=== PATIENT | male | born 1985 | race Caucasian/White ===

== ENCOUNTER 2020-03-09 15:24 | Emergency (ER) | payer MEDICAID ==
[~2020-03-09] VITALS: Ht 180.3 cm; Wt 93.0 kg
--- NOTE | 2020-03-09 15:45 | NUR ---
PT IS IN ROOM #1A. DR CHENG EVALUATED THE PT.
[2020-03-09] MEDS ORDERED: KETOROLAC TROMETHAMINE 30 MG INJ ONE (15:55)
[2020-03-09] MEDS ORDERED: KETOROLAC TROMETHAMINE 30 MG INJ IM ONE (16:00)
--- NOTE | 2020-03-09 16:06 | NUR ---
PT WAS D/C'd TO HOME. D/C INSTRUCTIONS GIVEN TO THE PT BY DR CHENG.
[2020-03-09 16:07] VITALS: BP 142/78
== END 2020-03-09 16:07 | disposition home or self-care (01) ==
LOC: ER 15:28
DX: G89.29 Other chronic pain (principal); M46.96 Unspecified inflammatory spondylopathy, lumbar region
CPT/HCPCS: 96372; 99283; J1885; A4663

== ENCOUNTER 2020-03-21 17:24 | Emergency (ER) | payer MEDICAID ==
[~2020-03-21] VITALS: Ht 180.3 cm; Wt 90.7 kg
[2020-03-21] MEDS ORDERED: DEXAMETHASONE SOD PHOSPHATE 4 MG INJ IM ONE (17:45)
[2020-03-21] MEDS ORDERED: KETOROLAC TROMETHAMINE 15 MG INJ IM ONE (17:45)
[2020-03-21] MEDS ORDERED: TRAMADOL HCL 50 MG TABLET PO ONE (17:45)
[2020-03-21 17:53] LABS: BASOPHILS # (AUTO) 0.1 K/uL (0.0-8.0); EOSINOPHILS # (AUTO) 0.1 K/uL (0.0-0.7); EOSINOPHILS % (AUTO) 1.5 % (0.0-7.0); HEMATOCRIT 47.1 % (36.7-47.1); HEMOGLOBIN 16.2 g/dL (12.5-16.3); LYMPHOCYTES # (AUTO) 3.4 K/uL (20.0-40.0); LYMPHOCYTES % (AUTO) 58.7 % (20.5-51.5); MEAN CORPUSCULAR HEMOGLOBIN 29.2 uug (23.8-33.4); MEAN CORPUSCULAR HGB CONC 34 g/dL (32.5-36.3); MEAN CORPUSCULAR VOLUME 85.2 fL (73.0-96.2); MONOCYTES # (AUTO) 0.8 K/uL (2.0-10.0); MONOCYTES % (AUTO) 14.3 % (0.0-11.0); NEUTROPHILS # (AUTO) 1.4 K/uL (1.8-8.9); NEUTROPHILS % (AUTO) 24.5 % (38.5-71.5); PLATELET COUNT (AUTO) 228 K/uL (152-348); RED BLOOD CELL COUNT(AUTO) 5.54 MIL/uL (4.06-5.63); WHITE BLOOD COUNT (AUTO) 5.7 K/uL (3.6-10.2)
[2020-03-21] MEDS ORDERED: DEXAMETHASONE SOD PHOSPHATE 4 MG INJ ONE (17:54)
[2020-03-21] MEDS ORDERED: KETOROLAC TROMETHAMINE 60 MG INJ IM ONE (17:55)
[2020-03-21] MEDS ORDERED: TRAMADOL HCL 50 MG TABLET ONE (17:55)
[2020-03-21 18:03] LABS: CARBON DIOXIDE 25 mmol/L (21-32); CHLORIDE 102 mmol/L (98-107); CREATININE 1.2 mg/dL (0.6-1.3); GLUCOSE 118 mg/dL (74-106); POTASSIUM 3.7 mmol/L (3.5-5.1); UREA NITROGEN, BLOOD 16 mg/dL (7-18)
[2020-03-21 18:09] LABS: ALANINE AMINOTRANSFERASE 131 U/L (16-63); ALKALINE PHOSPHATASE 121 U/L (50-136); ASPARTATE AMINOTRANSFERASE 65 U/L (15-37); BILIRUBIN,DIRECT < 0.1 mg/dL (0.0-0.2); BILIRUBIN,TOTAL 0.4 mg/dL (0.2-1.0); LIPASE 156 U/L (73-393); TOTAL PROTEIN, SERUM 7.9 g/dL (6.4-8.2)
[2020-03-21 18:25] LABS: *BILIRUBIN,URIN NEGATIVE (NEGATIVE); *BLOOD, URINE 1+ (NEGATIVE); *CLARITY,URINE CLEAR (CLEAR); *COLOR,URINE YELLOW (YELLOW); *KETONES,URINE NEGATIVE (NEGATIVE); *UROBILINOGEN,URINE 0.2 E.U./dl (NORMAL); LEUKOCYTE ESTERASE ,URINE NEGATIVE (NEGATIVE); NITRITE, URINE NEGATIVE (NEGATIVE); PH,URINE 5.5 (5.0-8.0); UGLUCOSE NEGATIVE (NEGATIVE)
[2020-03-21 18:32] VITALS: BP 138/76
[2020-03-21 18:54] LABS: BACTERIA,URINE FEW /HPF (NONE SEEN); RBC,URINE 0-3 /HPF (0-3); WBC,URINE 0-3 /HPF (0-3)
== END 2020-03-21 18:27 | disposition home or self-care (01) ==
LOC: ER 17:27
DX: S39.012A Strain of muscle, fascia and tendon of lower back, initial encounter (principal); X58.XXXA Exposure to other specified factors, initial encounter; Y92.89 Other specified places as the place of occurrence of the external cause; M51.26 Other intervertebral disc displacement, lumbar region
CPT/HCPCS: 36415; 74176; 80048; 80076; 81001; 83690; 85025; 96372 ×2; 99284; J1100; J1885; A4663

== ENCOUNTER 2020-04-04 14:05 | Emergency (ER) | payer MEDICAID ==
[~2020-04-04] VITALS: Ht 180.3 cm; Wt 89.8 kg
[2020-04-04 14:40] LABS: BASOPHILS # (AUTO) 0.1 K/uL (0.0-8.0); BASOPHILS % (AUTO) 0.9 % (0.0-2.0); EOSINOPHILS # (AUTO) 0.1 K/uL (0.0-0.7); EOSINOPHILS % (AUTO) 1.1 % (0.0-7.0); HEMATOCRIT 41.6 % (36.7-47.1); HEMOGLOBIN 13.8 g/dL (12.5-16.3); LYMPHOCYTES # (AUTO) 2.5 K/uL (20.0-40.0); LYMPHOCYTES % (AUTO) 30.4 % (20.5-51.5); MEAN CORPUSCULAR HEMOGLOBIN 28.2 uug (23.8-33.4); MEAN CORPUSCULAR HGB CONC 33 g/dL (32.5-36.3); MEAN CORPUSCULAR VOLUME 85.2 fL (73.0-96.2); MONOCYTES # (AUTO) 0.8 K/uL (2.0-10.0); NEUTROPHILS # (AUTO) 4.7 K/uL (1.8-8.9); NEUTROPHILS % (AUTO) 57.6 % (38.5-71.5); PLATELET COUNT (AUTO) 247 K/uL (152-348); RED BLOOD CELL COUNT(AUTO) 4.88 MIL/uL (4.06-5.63); WHITE BLOOD COUNT (AUTO) 8.2 K/uL (3.6-10.2)
[2020-04-04 14:44] LABS: *BILIRUBIN,URIN NEGATIVE (NEGATIVE); *BLOOD, URINE NEGATIVE (NEGATIVE); *CLARITY,URINE CLEAR (CLEAR); *COLOR,URINE YELLOW (YELLOW); *KETONES,URINE NEGATIVE (NEGATIVE); LEUKOCYTE ESTERASE ,URINE NEGATIVE (NEGATIVE); NITRITE, URINE NEGATIVE (NEGATIVE); UGLUCOSE NEGATIVE (NEGATIVE)
--- NOTE | 2020-04-04 14:44 | NUR ---
Pt c/o 04/14 RUQ ABD pain, "pressure," recurring x 3-4 weeks, denies n/v. Pt denies CP, SOB, dizziness, no other complaints, no distress noted.
[2020-04-04 14:56] LABS: BILIRUBIN,DIRECT 0.1 mg/dL (0.0-0.2); BILIRUBIN,TOTAL 0.4 mg/dL (0.2-1.0); CREATININE 1.4 mg/dL (0.6-1.3); POTASSIUM 3.9 mmol/L (3.5-5.1); TOTAL PROTEIN, SERUM 6.9 g/dL (6.4-8.2)
[2020-04-04] MEDS ORDERED: LIDOCAINE VISCUS 2% 15 ML UDC MM ONE (15:15)
[2020-04-04] MEDS ORDERED: MAG HYDROX/AL HYDROX/SIMETH 30 ML LIQUID UDC PO ONE (15:15)
[2020-04-04] MEDS ORDERED: PANTOPRAZOLE SODIUM 40 MG TABLET.DR PO ONE ×2 (15:15→15:36)
[2020-04-04] MEDS ORDERED: MAG HYDROX/AL HYDROX/SIMETH 30 ML LIQUID UDC ONE (15:35)
[2020-04-04] MEDS ORDERED: LIDOCAINE VISCUS 2% 15 ML UDC ONE (15:36)
--- NOTE | 2020-04-04 15:45 | NUR ---
Pt feeling much better, pain now 09/14, MD informed.
--- NOTE | 2020-04-04 15:59 | NUR ---
Gave pt RX and d/c instructions, pt verbalized understanding.
[2020-04-04 16:00] VITALS: BP 138/84
== END 2020-04-04 16:01 | disposition home or self-care (01) ==
LOC: ER 14:07
DX: K29.70 Gastritis, unspecified, without bleeding (principal); R79.89 Other specified abnormal findings of blood chemistry
CPT/HCPCS: 36415; 71045; 83690; 85025; A4663

== ENCOUNTER 2020-08-22 06:55 | Emergency (ER) | payer MEDICAID ==
[~2020-08-22] VITALS: Ht 180.3 cm; Wt 81.6 kg
--- NOTE | 2020-08-22 07:51 | NUR ---
[email or web address], medical screening exam in progress
--- NOTE | 2020-08-22 08:27 | NUR ---
Patient discharged to home in stable condition. Written and verbal after care instructions given to patient. Patient verbalized understanding & compliance of instructions. Stressed follow up with his primary doctor or return to ER for worsening s/s.
== END 2020-08-22 08:28 | disposition home or self-care (01) ==
LOC: ER 06:58
DX: L02.01 Cutaneous abscess of face (principal)
CPT/HCPCS: A4663

== ENCOUNTER 2020-08-24 20:08 | Emergency (ER) | payer MEDICAID ==
[~2020-08-24] VITALS: Ht 172.7 cm; Wt 81.2 kg
--- NOTE | 2020-08-24 20:53 | NUR ---
Janet bearden in [facility] - 08/24/20 at 2053 by JILLIANYA LWBT
--- NOTE | 2020-08-24 20:58 | NUR ---
DRESSING PLACED TO ABSCESS, PT D/C'D HOME.
[2020-08-24 20:59] VITALS: BP 155/78
== END 2020-08-24 21:00 | disposition home or self-care (01) ==
LOC: ER 20:08
DX: Z48.817 Encounter for surgical aftercare following surgery on the skin and subcutaneous tissue (principal); L02.01 Cutaneous abscess of face
CPT/HCPCS: A4663

== ENCOUNTER 2021-01-14 20:44 | Emergency (ER) | payer MEDICAID ==
[~2021-01-14] VITALS: Ht 177.8 cm; Wt 95.3 kg
--- NOTE | 2021-01-14 21:25 | NUR ---
Dr. Renya at bedside for MSE.
[2021-01-14] MEDS ORDERED: CEPH500C2 PO (21:38)
[2021-01-14] MEDS ORDERED: CLOT12CR TP (21:38)
[2021-01-14] MEDS ORDERED: HYDR-3972 PO (21:38)
--- NOTE | 2021-01-14 21:45 | NUR ---
Patient discharged to home in stable condition. Written and verbal after care instructions given. Patient verbalizes understanding of instructions. Stressed follow up or return to ER for worsening s/s.
[2021-01-14 21:46] VITALS: BP 143/89
== END 2021-01-14 21:46 | disposition home or self-care (01) ==
LOC: ER 20:45
DX: R23.4 Changes in skin texture (principal); L08.9 Local infection of the skin and subcutaneous tissue, unspecified; B96.89 Other specified bacterial agents as the cause of diseases classified elsewhere
CPT/HCPCS: A4663

== ENCOUNTER 2021-06-14 10:23 | Emergency (ER) | payer MEDICAID ==
[~2021-06-14] VITALS: Ht 177.8 cm; Wt 93.0 kg
[~2021-06-14 10:23] MED LIST: CEPH500C2 PO; CLOT12CR TP; HYDR-3972 PO
--- NOTE | 2021-06-14 10:55 | NUR ---
at bedside for assessment
[2021-06-14] MEDS ORDERED: KETOROLAC TROMETHAMINE 30 MG INJ IM ONE (11:00)
[2021-06-14] MEDS ORDERED: IBUP-1958 PO (11:01)
[2021-06-14] MEDS ORDERED: HYDR-4209 PO (11:01)
--- NOTE | 2021-06-14 11:01 | NUR ---
Toradol injection given in left deltoid
[2021-06-14] MEDS ORDERED: KETOROLAC TROMETHAMINE 30 MG INJ ONE (11:05)
--- NOTE | 2021-06-14 11:07 | NUR ---
Patient discharged to home in stable condition. No signs of distress noted. Written and verbal after care instructions given. Patient verbalizes understanding of instructions. Stressed follow up or return to ER for worsening s/s.
[2021-06-14 11:16] VITALS: BP 117/87
== END 2021-06-14 11:16 | disposition home or self-care (01) ==
LOC: ER 10:23
DX: G89.29 Other chronic pain (principal); M54.50 Low back pain, unspecified
CPT/HCPCS: 96372; 99283; J1885; A4663

== ENCOUNTER 2021-06-18 14:24 | Emergency (ER) | payer MEDICAID ==
[~2021-06-18] VITALS: Ht 177.8 cm; Wt 93.0 kg
[~2021-06-18 14:24] MED LIST changes: +HYDR-4209 PO; +IBUP-1958 PO
[2021-06-18] MEDS: IBUPROFEN 400 MG TABLET PO ONE (14:58)
[2021-06-18] MEDS: HYDROCODONE/APAP 5-325MG TABLET PO ONE (14:59)
[2021-06-18] MEDS: ACETAMINOPHEN 325 MG TABLET PO ONE (14:59)
[2021-06-18] MEDS ORDERED: IBUPROFEN 400 MG TABLET ONE (15:03)
[2021-06-18] MEDS ORDERED: HYDROCODONE/APAP 5-325MG TABLET ONE (15:03)
[2021-06-18] MEDS ORDERED: ACETAMINOPHEN 325 MG TABLET ONE (15:03)
[2021-06-18 15:42] VITALS: BP 131/77
--- NOTE | 2021-06-18 15:42 | NUR ---
Patient discharged to home in stable condition. Written and verbal after care instructions given. Patient verbalizes understanding of instructions. Stressed follow up or return to ER for worsening s/s.PT WALKS I NSTEADY GAIT. PT NOT DRIVING
== END 2021-06-18 15:43 | disposition home or self-care (01) ==
LOC: ER 14:24
DX: M25.512 Pain in left shoulder (principal); G89.29 Other chronic pain; M54.9 Dorsalgia, unspecified; M19.90 Unspecified osteoarthritis, unspecified site
CPT/HCPCS: 73030; A4663

== ENCOUNTER 2021-09-13 08:09 | Emergency (ER) | payer MEDICAID ==
[~2021-09-13] VITALS: Ht 180.3 cm; Wt 81.6 kg
[2021-09-13] MEDS ORDERED: KETOROLAC TROMETHAMINE 30 MG INJ IM ONE (08:30)
--- NOTE | 2021-09-13 08:42 | NUR ---
PT SEEN AND EVALUATED BY DR CHENG. MEDICATED FOR PAIN PER MD ORDER. TOLERATED WELL.
[2021-09-13 08:44] VITALS: BP 135/87
[2021-09-13] MEDS ORDERED: KETOROLAC TROMETHAMINE 30 MG INJ ONE (08:46)
== END 2021-09-13 08:45 | disposition home or self-care (01) ==
LOC: ER 08:19
DX: M54.42 Lumbago with sciatica, left side (principal); G89.29 Other chronic pain; M19.90 Unspecified osteoarthritis, unspecified site
CPT/HCPCS: 96372; 99283; J1885; A4663

== ENCOUNTER 2021-10-22 09:00 | Emergency (ER) | payer MEDICAID ==
[~2021-10-22] VITALS: Ht 180.3 cm; Wt 72.6 kg
[2021-10-22] MEDS ORDERED: PIPERACILLIN SODIUM/TAZOBACTAM 3.375 G in IV DEXTROSE 5% 50 ML IV ONE (09:15)
[2021-10-22] MEDS ORDERED: IV NORMAL SALINE 1000 ML BAG IV ONE (09:15)
[2021-10-22] MEDS ORDERED: VANCOMYCIN IV 1,000 MG in IV DEXTROSE 5% 250 ML IV ONE (09:15)
[2021-10-22 09:33] LABS: HEMATOCRIT 41.7 % (36.7-47.1); MEAN CORPUSCULAR HEMOGLOBIN 29.5 uug (23.8-33.4); MEAN CORPUSCULAR VOLUME 86.6 fL (73.0-96.2); PLATELET COUNT (AUTO) 313 K/uL (152-348)
[2021-10-22] MEDS ORDERED: IOHEXOL 300MG/ML 100 ML INFUS..BTL ONE (09:35)
[2021-10-22] MEDS ORDERED: IV NORMAL SALINE 250 ML IV ONE (09:35)
[2021-10-22] MEDS ORDERED: SWABABLE VALVE TRANSFER SET EA MC ONE (09:35)
[2021-10-22 09:42] LABS: CREATININE 0.9 mg/dL (0.6-1.3); POTASSIUM 3.2 mmol/L (3.5-5.1)
[2021-10-22] MEDS ORDERED: VANCOMYCIN IV 200 ML ONE (09:42)
[2021-10-22] MEDS ORDERED: PIPERACILLIN/TAZOBACTAM/D5W 50 ML IV ONE (09:42)
[2021-10-22 09:48] LABS: BILIRUBIN,DIRECT 0.5 mg/dL (0.0-0.2); BILIRUBIN,TOTAL 1.2 mg/dL (0.2-1.0)
[2021-10-22] MEDS ORDERED: SULF1TAB48 PO (12:58)
[2021-10-22] MEDS ORDERED: CEPH500C2 PO (12:58)
[2021-10-22 13:11] VITALS: BP 121/59
== END 2021-10-22 12:30 | disposition home or self-care (01) ==
LOC: ER 09:00
DX: L03.211 Cellulitis of face (principal); L03.221 Cellulitis of neck; E87.6 Hypokalemia; R79.89 Other specified abnormal findings of blood chemistry
CPT/HCPCS: 36415; 70491; 71045; 80048; 80076; 85025; 85730; 96365; 96366; 96367; 99285; J2543; J3370; Q9967; A4663; J7030; J7050

== ENCOUNTER → 2021-12-30 | Emergency (ER) | payer SELFPAY ==
[~2021-12-30] MED LIST changes: +SULF1TAB48 PO
--- NOTE | 2021-12-30 23:29 | NUR ---
pt left without being triaged.
== END | disposition left against medical advice (07) ==
LOC: ER 20:34
DX: Z53.21 Procedure and treatment not carried out due to patient leaving prior to being seen by health care provider (principal)

== ENCOUNTER 2022-01-11 10:14 | Emergency (ER) | payer MEDICAID ==
[~2022-01-11] VITALS: Ht 180.3 cm; Wt 95.3 kg
--- NOTE | 2022-01-11 10:32 | NUR ---
[email or web address], medical screening exam in progress
[2022-01-11] MEDS ORDERED: NAPR-1164 PO (10:36)
[2022-01-11] MEDS ORDERED: KETOROLAC TROMETHAMINE 30 MG INJ ONE (10:45)
[2022-01-11] MEDS ORDERED: KETOROLAC TROMETHAMINE 30 MG INJ IM ONE (10:45)
--- NOTE | 2022-01-11 10:49 | NUR ---
Patient discharged to home in stable condition with steady gait. Written and verbal after care instructions given. Patient verbalized understanding and compliance of instructions. Stressed follow up with your primary doctor or return to ER for worsening s/s.
== END 2022-01-11 10:49 | disposition home or self-care (01) ==
LOC: ER 10:14
DX: S39.012A Strain of muscle, fascia and tendon of lower back, initial encounter (principal); X58.XXXA Exposure to other specified factors, initial encounter; Y92.032 Bedroom in apartment as the place of occurrence of the external cause; G89.4 Chronic pain syndrome
CPT/HCPCS: 96372; 99283; J1885; A4663

== ENCOUNTER 2022-05-02 14:57 | Emergency (ER) | payer MEDICAID ==
[~2022-05-02] VITALS: Ht 180.3 cm; Wt 99.8 kg
[~2022-05-02 14:57] MED LIST changes: +NAPR-1164 PO
[2022-05-02 16:31] LABS: HEMATOCRIT 44.6 % (36.7-47.1); MEAN CORPUSCULAR HEMOGLOBIN 29.8 uug (23.8-33.4); MEAN CORPUSCULAR VOLUME 88.5 fL (73.0-96.2); PLATELET COUNT (AUTO) 290 K/uL (152-348)
[2022-05-02 16:36] LABS: POTASSIUM 3.6 mmol/L (3.5-5.1)
[2022-05-02 16:44] LABS: BILIRUBIN,TOTAL 0.4 mg/dL (0.2-1.0); TOTAL PROTEIN, SERUM 7.6 g/dL (6.4-8.2)
--- NOTE | 2022-05-02 17:13 | NUR ---
PT WAS EVALUATED BY DR GUSMAN. PT WAS D/C'd TO HOME. D/C INSTRUCTIONS GIVEN TO THE PT BY DR GOFF.
[2022-05-02 17:16] VITALS: BP 134/78
== END 2022-05-02 17:56 | disposition home or self-care (01) ==
LOC: ER 14:59
DX: R59.0 Localized enlarged lymph nodes (principal); G89.4 Chronic pain syndrome; M19.90 Unspecified osteoarthritis, unspecified site
CPT/HCPCS: 36415; 85025; A4663

== ENCOUNTER 2022-05-26 20:37 | Emergency (ER) | payer MEDICAID ==
[~2022-05-26] VITALS: Ht 177.8 cm; Wt 90.7 kg
--- NOTE | 2022-05-26 21:30 | NUR ---
Dr. Chambers called per Dr. Loera's request.
[2022-05-26] MEDS ORDERED: MORPHINE SULFATE 2 MG/1 ML DISP.SYRIN ONE (21:31)
[2022-05-26] MEDS ORDERED: LIDOCAINE HCL 1% 20 ML VIAL ONE (21:47)
[2022-05-26] MEDS ORDERED: HYDROMORPHONE 1 MG/1 ML DISP.SYRIN ONE (21:48)
--- NOTE | 2022-05-26 22:00 | NUR ---
Dr. Chambers at bedside. MSE in progress.
[2022-05-26] MEDS ORDERED: MORPHINE SULFATE 4 MG/1 ML DISP.SYRIN IM ONE (22:15)
[2022-05-26] MEDS ORDERED: HYDROMORPHONE 1 MG/1 ML DISP.SYRIN IM ONE (22:15)
--- NOTE | 2022-05-26 23:06 | NUR ---
Patient discharged to home in stable condition. A/Ox4. NAD noted. All belongings with patient. Written and verbal after care instructions given. Patient verbalizes understanding of instructions. Stressed follow up or return to ER for worsening s/s.
[2022-05-26 23:09] VITALS: BP 128/82
== END 2022-05-26 23:06 | disposition home or self-care (01) ==
LOC: ER 20:39
DX: N47.2 Paraphimosis (principal); N48.89 Other specified disorders of penis; G89.4 Chronic pain syndrome; M19.90 Unspecified osteoarthritis, unspecified site
CPT/HCPCS: 99284; 54450; 96372 ×2; J3490; J1170; J2270; A4663

== ENCOUNTER → 2022-09-02 | Emergency (ER) | payer SELFPAY | END | disposition left against medical advice (07) | LOC: ER 07:12 | DX: Z53.21 Procedure and treatment not carried out due to patient leaving prior to being seen by health care provider (principal) ==

== ENCOUNTER 2022-09-03 04:32 | Emergency (ER) | END 2022-09-03 06:46 | disposition home or self-care (01) | DX: S39.012A Strain of muscle, fascia and tendon of lower back, initial encounter (principal); X50.9XXA Other and unspecified overexertion or strenuous movements or postures, initial encounter; Y93.89 Activity, other specified; Y92.89 Other specified places as the place of occurrence of the external cause; G89.4 Chronic pain syndrome | CPT/HCPCS: 99283; 80048; 85025; 36415; 96372; J1885 ==

== ENCOUNTER 2022-09-25 15:13 | Emergency (ER) | payer MEDICAID ==
[~2022-09-25] VITALS: Ht 180.3 cm; Wt 77.1 kg
[2022-09-25] MEDS ORDERED: BACITRACIN ZINC OINT 15 GM TUBE TOP ONE (15:45)
[2022-09-25] MEDS ORDERED: BACITRACIN ZINC OINT 15 GM TUBE ONE (15:52)
--- NOTE | 2022-09-25 15:54 | NUR ---
PT SEEN AND EVALUATED BY PARIKH. MEDICATION PER MD ORDER. DISCHARGE INSTRUCTIONS RENDERED R/T [facility] AND [facility]INTMENT APPLICATION.
[2022-09-25] MEDS ORDERED: BACI3.5O23 TOP (15:58)
[2022-09-25 16:01] VITALS: BP 136/90
== END 2022-09-25 16:02 | disposition home or self-care (01) ==
LOC: ER 15:17
DX: A46 Erysipelas (principal); G89.4 Chronic pain syndrome
CPT/HCPCS: A4663

== ENCOUNTER 2022-10-09 14:12 | Emergency (ER) | payer MEDICAID ==
[~2022-10-09] VITALS: Ht 180.3 cm; Wt 86.2 kg
[~2022-10-09 14:12] MED LIST changes: +BACI3.5O23 TOP
[2022-10-09] MEDS ORDERED: ONDANSETRON 4 MG/2 ML VIAL ONE (15:12)
[2022-10-09] MEDS ORDERED: HYDROCODONE/APAP 5-325MG TABLET ONE (15:12)
[2022-10-09] MEDS ORDERED: HYDROCODONE/APAP 5-325MG TABLET PO ONE (15:15)
[2022-10-09] MEDS ORDERED: IV NORMAL SALINE 1000 ML BAG IV ONE (15:15)
[2022-10-09] MEDS ORDERED: ONDANSETRON 4 MG/2 ML VIAL IV ONE (15:15)
[2022-10-09 15:18] LABS: HEMATOCRIT 44.1 % (36.7-47.1); MEAN CORPUSCULAR HEMOGLOBIN 29.1 uug (23.8-33.4); PLATELET COUNT (AUTO) 284 K/uL (152-348)
--- NOTE | 2022-10-09 15:25 | NUR ---
36 years old alert, oriented x4 c/o left posterior head pain after falling yesterday, denies LOC.
[2022-10-09] MEDS ORDERED: SWABABLE VALVE TRANSFER SET EA MC ONE (15:59)
[2022-10-09] MEDS ORDERED: IV NORMAL SALINE 250 ML IV ONE (15:59)
[2022-10-09] MEDS ORDERED: IOHEXOL 350 100 ML INFUS..BTL ONE (15:59)
--- NOTE | 2022-10-09 19:12 | NUR ---
IV removed. Catheter intact and site benign. Pressure and 4x4 gauze applied to site. No bleeding noted.
== END 2022-10-09 19:14 | disposition home or self-care (01) ==
LOC: ER 14:12
DX: S06.0X0A Concussion without loss of consciousness, initial encounter (principal); S01.01XA Laceration without foreign body of scalp, initial encounter; R40.2252 Coma scale, best verbal response, oriented, at arrival to emergency department; R40.2362 Coma scale, best motor response, obeys commands, at arrival to emergency department; R40.2142 Coma scale, eyes open, spontaneous, at arrival to emergency department; W01.190A Fall on same level from slipping, tripping and stumbling with subsequent striking against furniture, initial encounter; Y92.89 Other specified places as the place of occurrence of the external cause; M47.812 Spondylosis without myelopathy or radiculopathy, cervical region; G89.4 Chronic pain syndrome; M19.90 Unspecified osteoarthritis, unspecified site
CPT/HCPCS: 99285; 70450; 96374; 71045; 96361; 80048; 85025; 85730; 36415; 70498; 72125; J2405; Q9967; J7040; A4663

== ENCOUNTER 2023-06-02 15:15 | Emergency (ER) | payer MEDICAID ==
[~2023-06-02] VITALS: Ht 180.3 cm; Wt 86.2 kg
[2023-06-02] MEDS ORDERED: OLOP2.5D12 EACHEYE (16:58)
[2023-06-02] MEDS ORDERED: LORA-782 PO (16:58)
[2023-06-02] MEDS ORDERED: BUDE8.43 NS (16:58)
[2023-06-02 17:34] VITALS: BP 122/70; TEMP 98; O2SAT 99
== END 2023-06-02 17:35 | disposition home or self-care (01) ==
LOC: ER 15:19
DX: J30.9 Allergic rhinitis, unspecified (principal); Z79.899 Other long term (current) drug therapy; Z79.1 Long term (current) use of non-steroidal anti-inflammatories (NSAID)
CPT/HCPCS: A4663

== ENCOUNTER 2023-12-07 09:16 | Emergency (ER) | payer OTHER ==
[~2023-12-07] VITALS: Ht 180.3 cm; Wt 81.6 kg
[~2023-12-07 09:16] MED LIST changes: +BUDE8.43 NS; +LORA-782 PO; +OLOP2.5D12 EACHEYE
[2023-12-07] MEDS ORDERED: CLIN300C3 PO (09:48)
[2023-12-07] MEDS ORDERED: MUPI22OI2 TP (09:48)
[2023-12-07] MEDS ORDERED: CLINDAMYCIN HCL 300 MG CAPSULE ONE (09:54)
[2023-12-07 09:55] VITALS: O2SAT 99
[2023-12-07] MEDS: CLINDAMYCIN HCL 150 MG CAPSULE PO ONE (10:03)
== END 2023-12-07 09:59 | disposition home or self-care (01) ==
LOC: ER 09:16
DX: J34.0 Abscess, furuncle and carbuncle of nose (principal); Z79.899 Other long term (current) drug therapy; Z60.2 Problems related to living alone
CPT/HCPCS: A4606; A4663

== ENCOUNTER 2023-12-26 09:13 | Emergency (ER) | payer OTHER ==
[~2023-12-26] VITALS: Ht 180.3 cm; Wt 72.6 kg
[~2023-12-26 09:13] MED LIST changes: +CLIN300C3 PO; +MUPI22OI2 TP
[2023-12-26] MEDS ORDERED: ONDANSETRON 4 MG/2 ML VIAL ONE (09:54)
[2023-12-26] MEDS ORDERED: HYDROMORPHONE 1 MG/1 ML DISP.SYRIN ONE (09:54)
[2023-12-26] MEDS: IV NORMAL SALINE 1000 ML BAG IV ONE (10:01)
[2023-12-26] MEDS: HYDROMORPHONE 1 MG/1 ML DISP.SYRIN IV ONE (10:01)
[2023-12-26] MEDS: ONDANSETRON 4 MG/2 ML VIAL IV ONE (10:01)
[2023-12-26 10:09] LABS: BASOPHILS # (AUTO) 0.4 K/UL (0.0-0.2); BASOPHILS % (AUTO) 3.8 % (0.0-2.0); EOSINOPHILS # (AUTO) 0.2 K/uL (0.0-0.7); EOSINOPHILS % (AUTO) 1.6 % (0.0-7.0); HEMATOCRIT 43.2 % (36.7-47.1); HEMOGLOBIN 14.7 g/dL (12.5-16.3); LYMPHOCYTES # (AUTO) 0.9 K/uL (0.8-4.8); LYMPHOCYTES % (AUTO) 8.8 % (20.5-51.5); MEAN CORPUSCULAR HEMOGLOBIN 30.3 uug (23.8-33.4); MEAN CORPUSCULAR HGB CONC 34 g/dL (32.5-36.3); MEAN CORPUSCULAR VOLUME 88.9 fL (73.0-96.2); MONOCYTES # (AUTO) 0.6 K/uL (0.1-1.30); MONOCYTES % (AUTO) 5.5 % (0.0-11.0); NEUTROPHILS # (AUTO) 8.3 K/uL (1.8-8.9); NEUTROPHILS % (AUTO) 80.3 % (38.5-71.5); PLATELET COUNT (AUTO) 260 K/uL (152-348); RED BLOOD CELL COUNT(AUTO) 4.86 MIL/uL (4.06-5.63); RED CELL DISTRIBUTION WIDTH 13.7 % (12.1-16.2); WHITE BLOOD COUNT (AUTO) 10.3 K/uL (3.6-10.2)
[2023-12-26 10:34] LABS: CALCIUM 8.9 mg/dL (8.5-10.1); CREATININE 0.9 mg/dL (0.6-1.3); POTASSIUM 3.2 mmol/L (3.5-5.1)
[2023-12-26 10:40] LABS: ALBUMIN 3.9 g/dL (3.4-5.0); BILIRUBIN,DIRECT 0.4 mg/dL (0.0-0.2); BILIRUBIN,TOTAL 1.1 mg/dL (0.2-1.0); TOTAL PROTEIN, SERUM 7.2 g/dL (6.4-8.2)
[2023-12-26 10:41] LABS: DIFFERENTIAL COMMENT 1
[2023-12-26 10:42] LABS: *BLOOD, URINE NEGATIVE (NEGATIVE); *CLARITY,URINE CLEAR (CLEAR); *COLOR,URINE YELLOW (YELLOW); *KETONES,URINE TRACE (NEGATIVE); *PROTEIN,URINE 1+ (NEGATIVE); LEUKOCYTE ESTERASE ,URINE NEGATIVE (NEGATIVE); NITRITE, URINE NEGATIVE (NEGATIVE); PH,URINE 5.5 (5.0-8.0); UGLUCOSE NEGATIVE (NEGATIVE)
[2023-12-26] MEDS ORDERED: POTASSIUM BICARBONATE/CIT AC 25 MEQ TABLET.EFF ONE (11:01)
[2023-12-26] MEDS: POTASSIUM BICARBONATE/CIT AC 25 MEQ TABLET.EFF PO ONE (11:05)
[2023-12-26 11:06] LABS: *BILIRUBIN,URIN 1+ (NEGATIVE)
[2023-12-26] MEDS ORDERED: IOHEXOL 300MG/ML 100 ML INFUS..BTL ONE (11:14)
[2023-12-26] MEDS ORDERED: IV NORMAL SALINE 250 ML IV ONE (11:14)
[2023-12-26] MEDS ORDERED: SWABABLE VALVE TRANSFER SET EA MC ONE (11:14)
[2023-12-26 11:52] LABS: BACTERIA,URINE FEW /HPF (NONE SEEN); COARSE GRANULAR CASTS,URINE 0-3 /LPF; RBC,URINE 0-3 /HPF (0-3); SQUAMOUS EPITHELIAL CELL,UR FEW /HPF (NONE SEEN); URINE AMORPHOUS URATE MANY /HPF; WBC,URINE 0-3 /HPF (0-3)
[2023-12-26 15:47] VITALS: BP 130/70; TEMP 97; O2SAT 99
== END 2023-12-26 15:48 | disposition home or self-care (01) ==
LOC: ER 09:13
DX: R10.11 Right upper quadrant pain (principal); R45.851 Suicidal ideations; R74.01 Elevation of levels of liver transaminase levels; G89.29 Other chronic pain; Z79.899 Other long term (current) drug therapy; Z60.2 Problems related to living alone
CPT/HCPCS: 99285; 74177; 96374; 76705; 96375; 80076; 80048; 81001; 83690; 85025; 36415; J2405; Q9967; J1170; J7040; A4606; A4663

== ENCOUNTER 2024-02-15 09:23 | Emergency (ER) | payer OTHER ==
[~2024-02-15] VITALS: Ht 180.3 cm; Wt 81.6 kg
[2024-02-15] MEDS ORDERED: KETOROLAC TROMETHAMINE 60 MG INJ IM ONE (09:53)
[2024-02-15] MEDS ORDERED: LORAZEPAM 1 MG TABLET ONE (09:53)
[2024-02-15] MEDS: KETOROLAC TROMETHAMINE 60 MG INJ IM ONE (10:02)
[2024-02-15] MEDS: LORAZEPAM 0.5 MG TABLET PO ONE (10:02)
[2024-02-15] MEDS ORDERED: IBUP-1955 PO (11:06)
[2024-02-15] MEDS ORDERED: ALOE118C TP (11:06)
[2024-02-15 11:21] VITALS: BP 118/70; TEMP 98.5; O2SAT 96
== END 2024-02-15 11:15 | disposition home or self-care (01) ==
LOC: ER 09:23
DX: R07.89 Other chest pain (principal); Z79.899 Other long term (current) drug therapy; Z60.2 Problems related to living alone
CPT/HCPCS: 99283; 71045; 96372; J1885; A4606; A4663

== ENCOUNTER 2024-03-20 10:59 | Emergency (ER) | payer MEDICARE, OTHER ==
[~2024-03-20] VITALS: Ht 177.8 cm; Wt 81.6 kg
[~2024-03-20 10:59] MED LIST changes: +ALOE118C TP; +IBUP-1955 PO
[2024-03-20] MEDS ORDERED: NEOMY/BACITRA/POLYMYXIN B OINT UD PACKET TP ONE (11:49)
[2024-03-20] MEDS ORDERED: AMOX-430 PO (12:55)
[2024-03-20] MEDS ORDERED: IBUP-1955 PO (12:55)
[2024-03-20] MEDS ORDERED: TDAP DIPH,PERTUSS,TET VAC/PF 0.5 ML DISP.SYRIN IM ONE ×2 (13:00)
[2024-03-20 13:11] VITALS: BP 121/72; TEMP 97; O2SAT 99
== END 2024-03-20 13:11 | disposition home or self-care (01) ==
LOC: ER 10:59
DX: S21.112A Laceration without foreign body of left front wall of thorax without penetration into thoracic cavity, initial encounter (principal); Z79.1 Long term (current) use of non-steroidal anti-inflammatories (NSAID); Z79.899 Other long term (current) drug therapy; Z79.891 Long term (current) use of opiate analgesic; Z60.2 Problems related to living alone; W54.0XXA Bitten by dog, initial encounter; Y93.89 Activity, other specified; Y92.89 Other specified places as the place of occurrence of the external cause; Y99.8 Other external cause status
CPT/HCPCS: 90715; A4606; A4663

== ENCOUNTER 2024-05-07 16:53 | Emergency (ER) | payer MEDICARE ==
[~2024-05-07] VITALS: Ht 180.3 cm; Wt 81.6 kg
[~2024-05-07 16:53] MED LIST changes: +AMOX-430 PO
[2024-05-07] MEDS ORDERED: CEFTRIAXONE 1 G VIAL ONE (17:19)
[2024-05-07] MEDS ORDERED: LIDOCAINE HCL 1% 20 ML VIAL ONE (17:19)
[2024-05-07] MEDS: CEFTRIAXONE 1 G VIAL IM ONE (17:21)
[2024-05-07] MEDS ORDERED: SULF1TAB48 PO (17:53)
[2024-05-07] MEDS ORDERED: AMOX-430 PO (17:53)
--- NOTE | 2024-05-07 18:07 | NUR ---
Patient discharged to home in stable condition. Written and verbal after care instructions given. Patient verbalizes understanding of instructions. Stressed follow up or return to ER for worsening s/s. Pt encouraged to change dressing regularly and monitor for worsening infections. and to take meds as directed
[2024-05-07 18:09] VITALS: BP 126/78; O2SAT 99
== END 2024-05-07 18:21 | disposition home or self-care (01) ==
LOC: ER 16:54
DX: L03.116 Cellulitis of left lower limb (principal); Z79.1 Long term (current) use of non-steroidal anti-inflammatories (NSAID); Z79.891 Long term (current) use of opiate analgesic; Z79.899 Other long term (current) drug therapy; Z60.2 Problems related to living alone
CPT/HCPCS: 99283; 96372; J0696; J3490; A4606; A4663

== ENCOUNTER 2024-05-30 10:29 | Emergency (ER) | payer MEDICAID, MEDICARE ==
[~2024-05-30] VITALS: Ht 180.3 cm; Wt 81.6 kg
[2024-05-30] MEDS: CEFTRIAXONE 1 G VIAL IM ONE (11:32)
[2024-05-30] MEDS ORDERED: CEFTRIAXONE 1 G VIAL ONE (11:32)
[2024-05-30] MEDS ORDERED: LIDOCAINE HCL 1% 20 ML VIAL ONE (11:32)
[2024-05-30] MEDS ORDERED: SULFAMETH/TRIMETH 800/160 MG TABLET ONE (11:32)
[2024-05-30] MEDS: SULFAMETH/TRIMETH 800/160 MG TABLET PO ONE (11:33)
[2024-05-30] MEDS ORDERED: SULF1TAB48 PO (11:40)
[2024-05-30 11:49] VITALS: BP 129/84; O2SAT 98
[2024-05-30] MEDS: LIDOCAINE HCL 1% 20 ML VIAL IJ ONE (12:02)
[2024-05-31] MEDS ORDERED: OXYC-133 PO (00:02)
== END 2024-05-30 11:49 | disposition home or self-care (01) ==
LOC: ER 10:29
DX: L02.811 Cutaneous abscess of head [any part, except face] (principal); Z79.1 Long term (current) use of non-steroidal anti-inflammatories (NSAID); Z79.891 Long term (current) use of opiate analgesic; Z79.899 Other long term (current) drug therapy; Z60.2 Problems related to living alone
CPT/HCPCS: 99283; 10060; 96372; J0696; J3490; A4606; A4663

== ENCOUNTER 2024-05-30 22:13 | Emergency (ER) | payer MEDICAID, MEDICARE ==
[~2024-05-30] VITALS: Ht 180.3 cm; Wt 81.6 kg
[2024-05-30] MEDS ORDERED: CEFTRIAXONE /D5W 50ML IVPB **ER PYXIS IV ONE (22:51)
[2024-05-30] MEDS ORDERED: ASPIRIN 81 MG TAB.CHEW ONE (22:51)
[2024-05-30] MEDS ORDERED: ALPRAZOLAM 0.5 MG TABLET ONE (22:52)
[2024-05-30] MEDS ORDERED: ONDANSETRON ODT 4 MG TAB.RAPDIS ONE (22:52)
[2024-05-30] MEDS ORDERED: OXYCODONE/APAP 5-325 MG TABLET ONE (22:52)
[2024-05-30] MEDS: OXYCODONE/APAP 5-325 MG TABLET PO ONE (22:59)
[2024-05-30] MEDS: ALPRAZOLAM 0.25 MG TABLET PO ONE (22:59)
[2024-05-30] MEDS: ONDANSETRON ODT 4 MG TAB.RAPDIS SL ONE (22:59)
[2024-05-30] MEDS: ASPIRIN 81 MG TAB.CHEW PO ONE (22:59)
[2024-05-30 23:09] LABS: CALCIUM 8.4 mg/dL (8.5-10.1); CARBON DIOXIDE 27 mmol/L (21-32); CHLORIDE 99 mmol/L (98-107); GLUCOSE 151 mg/dL (74-106); POTASSIUM 3.6 mmol/L (3.5-5.1); SODIUM SERUM 136 mmol/L (136-145); UREA NITROGEN, BLOOD 7 mg/dL (7-18)
[2024-05-30 23:10] LABS: BASOPHILS % (AUTO) 0.4 % (0.0-2.0); EOSINOPHILS % (AUTO) 0.2 % (0.0-7.0); HEMATOCRIT 45.4 % (36.7-47.1); HEMOGLOBIN 15.1 g/dL (12.5-16.3); LYMPHOCYTES # (AUTO) 1.7 K/uL (0.8-4.8); LYMPHOCYTES % (AUTO) 15.7 % (20.5-51.5); MEAN CORPUSCULAR HEMOGLOBIN 29.3 uug (23.8-33.4); MEAN CORPUSCULAR HGB CONC 33 g/dL (32.5-36.3); MONOCYTES # (AUTO) 1.1 K/uL (0.1-1.30); MONOCYTES % (AUTO) 10.2 % (0.0-11.0); NEUTROPHILS % (AUTO) 73.5 % (38.5-71.5); PLATELET COUNT (AUTO) 216 K/uL (152-348); RED BLOOD CELL COUNT(AUTO) 5.16 MIL/uL (4.06-5.63); WHITE BLOOD COUNT (AUTO) 10.8 K/uL (3.6-10.2)
[2024-05-30 23:11] LABS: DIFFERENTIAL COMMENT 1
[2024-05-30] MEDS: CEFTRIAXONE 1 G in IV DEXTROSE 5% 50 ML IV ONE (23:14)
[2024-05-30 23:23] LABS: ALANINE AMINOTRANSFERASE 69 U/L (16-63); ALBUMIN 3.5 g/dL (3.4-5.0); ALKALINE PHOSPHATASE 124 U/L (50-136); ASPARTATE AMINOTRANSFERASE 49 U/L (15-37); BILIRUBIN,DIRECT 0.2 mg/dL (0.0-0.2); BILIRUBIN,TOTAL 0.6 mg/dL (0.2-1.0); NT-PRO BNP 48 pg/mL (0-125); TOTAL PROTEIN, SERUM 7.1 g/dL (6.4-8.2)
[2024-05-31] MEDS ORDERED: OXYC-133 PO (00:02)
[2024-05-31 01:55] VITALS: BP 129/81; TEMP 97.8; O2SAT 97
== END 2024-05-31 01:53 | disposition home or self-care (01) ==
LOC: ER 22:17
DX: L02.811 Cutaneous abscess of head [any part, except face] (principal); G89.29 Other chronic pain; R07.89 Other chest pain; F17.200 Nicotine dependence, unspecified, uncomplicated; Z79.891 Long term (current) use of opiate analgesic; Z79.1 Long term (current) use of non-steroidal anti-inflammatories (NSAID); Z79.899 Other long term (current) drug therapy; Z90.49 Acquired absence of other specified parts of digestive tract; Z60.2 Problems related to living alone
CPT/HCPCS: 36415; 71045; 84484; 85025; A4606; A4663; J0696; Q0162

== ENCOUNTER 2024-06-01 11:27 | Emergency (ER) | payer MEDICAID ==
[~2024-06-01] VITALS: Ht 180.3 cm; Wt 81.6 kg
[~2024-06-01 11:27] MED LIST changes: +OXYC-133 PO
[2024-06-01] MEDS ORDERED: NEOMY/BACITRA/POLYMYXIN B OINT UD PACKET TP ONE (11:57)
[2024-06-01] MEDS: NEOMY/BACITRA/POLYMYXIN B OINT UD PACKET TP ONE (12:11)
[2024-06-01 12:26] VITALS: BP 132/88; TEMP 97.8; O2SAT 97
== END 2024-06-01 12:25 | disposition home or self-care (01) ==
LOC: ER 11:27
DX: L02.811 Cutaneous abscess of head [any part, except face] (principal); F17.200 Nicotine dependence, unspecified, uncomplicated; Z90.49 Acquired absence of other specified parts of digestive tract; Z79.891 Long term (current) use of opiate analgesic; Z79.1 Long term (current) use of non-steroidal anti-inflammatories (NSAID); Z79.899 Other long term (current) drug therapy; Z59.00 Homelessness unspecified
CPT/HCPCS: A4606; A4663

== ENCOUNTER 2024-06-18 21:04 | Emergency (ER) | payer MEDICAID, OTHER ==
[~2024-06-18] VITALS: Ht 180.3 cm; Wt 81.6 kg
[2024-06-18] MEDS ORDERED: IBUP-1955 PO (21:56)
[2024-06-18] MEDS: IBUPROFEN 400 MG TABLET PO ONE (22:02)
[2024-06-18] MEDS: ACETAMINOPHEN 500 MG TABLET PO ONE (22:02)
[2024-06-18] MEDS: SULFAMETH/TRIMETH 800/160 MG TABLET PO ONE (22:02)
[2024-06-18 22:07] VITALS: BP 133/78; TEMP 97.8; O2SAT 99
== END 2024-06-18 22:05 | disposition home or self-care (01) ==
LOC: ER 21:06
DX: L98.9 Disorder of the skin and subcutaneous tissue, unspecified (principal); Z90.49 Acquired absence of other specified parts of digestive tract; Z79.899 Other long term (current) drug therapy; Z59.00 Homelessness unspecified; Z88.7 Allergy status to serum and vaccine
CPT/HCPCS: A4606; A4663